=== PATIENT | male | born 1985 | race Caucasian/White ===

== ENCOUNTER 2019-01-06 17:34 | Emergency (ER) | payer MEDICAID, OTHER ==
[~2019-01-06] VITALS: Ht 188 cm; Wt 113.4 kg
[~2019-01-06 17:34] MED LIST: prozac
[2019-01-06] MEDS ORDERED: ACETAMINOPHEN 325 MG TAB PO ONE (18:00)
[2019-01-06] MEDS ORDERED: SODIUM CHLORIDE 0.9% 1,000 ML IV ONE (19:23)
[2019-01-06] MEDS ORDERED: cefTRIAXone 1GM/50ML D5W 50 ML IV ONE (19:30)
[2019-01-06] MEDS ORDERED: KETOROLAC TROMETH 30 MG/ML 1ML VIAL IV ONE (19:30)
[2019-01-06 19:47] LABS: Basophils # (auto) 0.1 uL; Basophils % (auto) 0.9 % (0.0-2.0); Eosinophils # (auto) 0 uL; Eosinophils % (auto) 0.1 % (0.0-7.0); Hematocrit 44.7 % (41.0-53.0); Hemoglobin 15.4 g/dL (13.5-17.5); Lymphocytes # (auto) 0.9 uL; Lymphocytes % (auto) 14.3 % (10.0-50.0); Mean Corpuscular Hemoglobin 32.7 pg (28.0-32.0); Mean Corpuscular Hgb Conc. 34.5 g/dL (32.0-36.0); Mean Corpuscular Volume 94.8 fL (80.0-100.0); Monocytes % (auto) 16.4 % (0.0-12.0); Neutrophils # (auto) 4.1 uL; Neutrophils % (auto) 68.3 % (37.0-80.0); Platelet Count (auto) 227 10^3/uL (140-450); Red Blood Cells 4.71 10^6/uL (4.5-5.90); Red Cell Distribution Width 13.1 % (11.8-14.3)
[2019-01-06 19:59] LABS: BUN/Creatinine Ratio 6.7; Calcium 8.8 mg/dL (8.5-10.1); Potassium 3.7 mmol/L (3.5-5.1)
[2019-01-06 20:01] LABS: Bilirubin, Total 0.5 mg/dL (0.2-1.0); Total Protein 7.6 g/dL (6.4-8.2)
[2019-01-06 21:13] VITALS: BP 127/60
== END 2019-01-06 22:25 | disposition home or self-care (01) ==
LOC: ER 17:39
DX: J20.9 Acute bronchitis, unspecified (principal); F17.210 Nicotine dependence, cigarettes, uncomplicated
CPT/HCPCS: 36415; 71046; 80053; 85025; 94761; 96365; 96375; 99284; J0696; J1885; J7030

== ENCOUNTER 2021-03-26 17:33 | Emergency (ER) | payer SELFPAY ==
[~2021-03-26] VITALS: Ht 190.5 cm; Wt 90.7 kg
[2021-03-26 17:40] VITALS: BP 118/72
[2021-03-26 18:52] LABS: Basophils # (auto) 0.1 10 ^3/uL (0-0.2); Basophils % (auto) 0.6 % (0.0-2.0); Eosinophils # (auto) 0.1 10 ^3/uL (0-0.8); Eosinophils % (auto) 0.7 % (0.0-7.0); Hematocrit 42.7 % (41.0-53.0); Hemoglobin 14.9 g/dL (13.5-17.5); Lymphocytes # (auto) 1.3 10 ^3/uL (0.4-5.4); Mean Corpuscular Hemoglobin 33.3 pg (28.0-32.0); Mean Corpuscular Hgb Conc. 34.9 g/dL (32.0-36.0); Mean Corpuscular Volume 95.4 fL (80.0-100.0); Monocytes # (auto) 1.1 10 ^3/uL (0-1.3); Monocytes % (auto) 9.2 % (0.0-12.0); Neutrophils # (auto) 9.6 10 ^3/uL (1.6-8.6); Neutrophils % (auto) 78.5 % (37.0-80.0); Red Blood Cells 4.48 10^6/uL (4.5-5.90); Red Cell Distribution Width 12.8 % (11.8-14.3); White Blood Cell 12.3 10^3/uL (4.4-10.8)
[2021-03-26 19:12] LABS: Potassium 3.7 mmol/L (3.5-5.1)
[2021-03-26 19:20] LABS: Albumin 3.8 g/dL (3.4-5.0); BUN/Creatinine Ratio 15.9; Bilirubin, Total 0.6 mg/dL (0.2-1.0); Calcium 8.8 mg/dL (8.5-10.1); Total Protein 7.2 g/dL (6.4-8.2)
[2021-03-26 20:17] LABS: Urine Bacteria NONE SEEN /hpf (None Seen); Urine Blood Negative /uL (Negative); Urine Mucus FEW (None Seen); Urine Specific Gravity 1.029 (1.001-1.035); Urine WBC 1 /hpf (0 - 3)
[2021-03-26 20:28] LABS: Alcohol, Urine < 3.0 mg/dL (0-10); Amphetamine Screen, Urine POSITIVE (NEGATIVE); Barbiturate Scree,Urine NEGATIVE (NEGATIVE); Benzodiazephine Screen, Urine NEGATIVE (NEGATIVE); Cannabinoid Screen, Urine POSITIVE (NEGATIVE); Cocaine Screen, Urine NEGATIVE (NEGATIVE); Phencyclidine Screen, Urine NEGATIVE (NEGATIVE)
[2021-03-26 20:35] LABS: Opiate Scree,Urine NEGATIVE (NEGATIVE)
== END 2021-03-27 02:04 | disposition left against medical advice (07) ==
LOC: ER 17:33
DX: R53.83 Other fatigue (principal)
CPT/HCPCS: 36415; 80053; 80307; 81001; 85025

== ENCOUNTER 2021-06-13 16:42 | Emergency (ER) | payer MEDICAID, OTHER ==
[~2021-06-13] VITALS: Ht 188 cm; Wt 90.7 kg
[2021-06-13] MEDS ORDERED: ACETAMINOPHEN 325 MG TAB PO ONE (19:45)
[2021-06-13 20:21] VITALS: BP 116/75
[2021-06-13 20:35] LABS: Basophils # (auto) 0.1 10 ^3/uL (0-0.2); Eosinophils # (auto) 0 10 ^3/uL (0-0.8); Eosinophils % (auto) 0.4 % (0.0-7.0); Hematocrit 42.2 % (41.0-53.0); Hemoglobin 14.6 g/dL (13.5-17.5); Lymphocytes # (auto) 1.2 10 ^3/uL (0.4-5.4); Lymphocytes % (auto) 10.9 % (10.0-50.0); Mean Corpuscular Hemoglobin 32.7 pg (28.0-32.0); Mean Corpuscular Hgb Conc. 34.7 g/dL (32.0-36.0); Mean Corpuscular Volume 94.4 fL (80.0-100.0); Monocytes # (auto) 0.8 10 ^3/uL (0-1.3); Monocytes % (auto) 6.8 % (0.0-12.0); Neutrophils # (auto) 9.2 10 ^3/uL (1.6-8.6); Neutrophils % (auto) 80.9 % (37.0-80.0); Nucleated Red Blood Cells % 0.1 %; Red Blood Cells 4.47 10^6/uL (4.5-5.90); Red Cell Distribution Width 12.9 % (11.8-14.3); White Blood Cell 11.4 10^3/uL (4.4-10.8)
[2021-06-13 20:44] LABS: Albumin 3.8 g/dL (3.4-5.0); BUN/Creatinine Ratio 11.2; Calcium 8.6 mg/dL (8.5-10.1); Potassium 3.9 mmol/L (3.5-5.1)
[2021-06-13 20:47] LABS: Bilirubin, Total 0.6 mg/dL (0.2-1.0); Total Protein 7.1 g/dL (6.4-8.2)
[2021-06-13] MEDS ORDERED: IOHEXOL 300 MG/ML 100ML BOTTLE IJ ONE (21:02)
== END 2021-06-13 23:44 | disposition home or self-care (01) ==
LOC: EDBD 16:42 → ER 16:42
DX: S20.211A Contusion of right front wall of thorax, initial encounter (principal); S70.11XA Contusion of right thigh, initial encounter; S09.90XA Unspecified injury of head, initial encounter; F12.10 Cannabis abuse, uncomplicated; F15.10 Other stimulant abuse, uncomplicated; Z90.49 Acquired absence of other specified parts of digestive tract; V29.49XA Motorcycle driver injured in collision with other motor vehicles in traffic accident, initial encounter; Y93.89 Activity, other specified; Y92.410 Unspecified street and highway as the place of occurrence of the external cause; Y99.8 Other external cause status
CPT/HCPCS: 36415; 70450; 71260; 72125; 73552; 80053; 85025; 99285; Q9967

== ENCOUNTER 2021-10-24 09:42 | Emergency (ER) | payer OTHER ==
[~2021-10-24] VITALS: Ht 188 cm; Wt 90.7 kg
[2021-10-24] MEDS ORDERED: TETANUS-DIPTH-ACEL PERTUSSIS 0.5ML SYR Tdap IM ONE (10:00)
[2021-10-24] MEDS ORDERED: cefTRIAXone 1GM/50ML D5W 50 ML IV ONE (10:00)
[2021-10-24] MEDS ORDERED: KETOROLAC TROMETH 30 MG/ML 1ML VIAL IV ONE ×3 (10:00→14:30)
[2021-10-24 10:19] LABS: Basophils # (auto) 0.1 10 ^3/uL (0-0.2); Eosinophils # (auto) 0.1 10 ^3/uL (0-0.8); Eosinophils % (auto) 1.2 % (0.0-7.0); Hematocrit 40.8 % (41.0-53.0); Hemoglobin 13.8 g/dL (13.5-17.5); Lymphocytes # (auto) 2.5 10 ^3/uL (0.4-5.4); Lymphocytes % (auto) 28.5 % (10.0-50.0); Mean Corpuscular Hemoglobin 32.7 pg (28.0-32.0); Mean Corpuscular Hgb Conc. 33.7 g/dL (32.0-36.0); Mean Corpuscular Volume 96.9 fL (80.0-100.0); Monocytes # (auto) 0.8 10 ^3/uL (0-1.3); Monocytes % (auto) 9.2 % (0.0-12.0); Neutrophils # (auto) 5.3 10 ^3/uL (1.6-8.6); Neutrophils % (auto) 60.1 % (37.0-80.0); Nucleated Red Blood Cells % 0.1 %; Red Blood Cells 4.21 10^6/uL (4.5-5.90); Red Cell Distribution Width 12.8 % (11.8-14.3); White Blood Cell 8.8 10^3/uL (4.4-10.8)
[2021-10-24 10:20] LABS: Albumin 3.6 g/dL (3.4-5.0); Calcium 7.6 mg/dL (8.5-10.1); Potassium 3.2 mmol/L (3.5-5.1)
[2021-10-24 10:24] LABS: BUN/Creatinine Ratio 19.8; Bilirubin, Total 0.4 mg/dL (0.2-1.0); Total Protein 6.2 g/dL (6.4-8.2)
[2021-10-24] MEDS ORDERED: IOHEXOL 350 MG/ML 100ML IJ ONE (10:41)
[2021-10-24] MEDS ORDERED: SODIUM CHLORIDE 0.9% 1,000 ML IV ONE (10:45)
[2021-10-24 15:33] VITALS: BP 127/64
== END 2021-10-24 16:29 | disposition short-term general hospital (02) ==
LOC: ER 09:42
DX: S81.811A Laceration without foreign body, right lower leg, initial encounter (principal); F17.210 Nicotine dependence, cigarettes, uncomplicated; F12.10 Cannabis abuse, uncomplicated; Z90.49 Acquired absence of other specified parts of digestive tract; W32.0XXA Accidental handgun discharge, initial encounter; Y93.89 Activity, other specified; Y92.89 Other specified places as the place of occurrence of the external cause; Y99.8 Other external cause status
CPT/HCPCS: 36415; 73552; 73706; 80053; 85025; 96365; 96375; 99285; J0696; J1885; J7030; Q9967

== ENCOUNTER 2024-01-09 04:28 | Emergency (ER) | payer MEDICAID, OTHER ==
[~2024-01-09] VITALS: Ht 188 cm; Wt 100.0 kg
[2024-01-09] MEDS: MORPHINE SULFATE 4 MG/ML SYR/VIAL IM ONE (07:49)
[2024-01-09] MEDS: HYDROmorphone HCL 2 MG/ML VL/or syr IM ONE (09:33)
[2024-01-09 10:05] VITALS: TEMP 97.8; O2SAT 97
[2024-01-09 10:08] VITALS: BP 129/71; PULSE 75; RESP 16
[2024-01-09] MEDS ORDERED: CYCL-837 PO (10:31)
[2024-01-09] MEDS ORDERED: MELO7.5T7 PO (10:31)
== END 2024-01-09 11:16 | disposition home or self-care (01) ==
LOC: ER 04:28
DX: S39.012A Strain of muscle, fascia and tendon of lower back, initial encounter (principal); F12.10 Cannabis abuse, uncomplicated; F17.210 Nicotine dependence, cigarettes, uncomplicated; Z90.49 Acquired absence of other specified parts of digestive tract
CPT/HCPCS: 96372; 99285; J1170; J2270